=== PATIENT | female | born 1965 | race Caucasian/White ===

== ENCOUNTER 2017-07-04 08:57 | Emergency (ER) | payer SELFPAY ==
[~2017-07-04] VITALS: Ht 162.6 cm; Wt 105.0 kg
[2017-07-04] MEDS ORDERED: KETOROLAC 60MG/2ML VIAL IM STA (13:15)
[2017-07-04] MEDS ORDERED: METOCLOPRAMIDE HCL 10MG/2ML VIAL IM STA (13:15)
[2017-07-04 14:18] LABS: BASOPHILS % 0.6 % (0.0-2.0); CARBON DIOXIDE 30 mEq/L (21-32); CHLORIDE 108 mEq/L (98-107); EOSINOPHILS % 1.6 % (0.0-5.0); ETHANOL BLOOD < 10 mg/dL; HEMATOCRIT. 39.3 % (36.0-48.0); HEMOGLOBIN. 12.6 g/dL (12.0-16.0); LYMPHOCYTES % 36.1 % (20.0-50.0); MEAN CORPUSCULAR HEMOGLOBIN 25.8 pg (28.0-32.0); MEAN CORPUSCULAR VOLUME 80.2 fL (81.0-99.0); MEAN PLATELET VOLUME 7.8 fl (7.4-10.4); MONOCYTES % 4.6 % (2.0-8.0); NEUTROPHILS % 57.1 % (40.0-76.0); PLATELET 262 x1000/uL (130-400)
[2017-07-04 15:07] LABS: CLARITY URINE CLEAR (CLEAR); COLOR URINE YELLOW (YELLOW); KETONES URINE NEGATIVE (NEGATIVE); LEUKOCYTE ESTERASE URINE TRACE (NEGATIVE); NITRITE URINE NEGATIVE (NEGATIVE); OCCULT BLOOD URINE NEGATIVE (NEGATIVE); PH URINE 6.5 (4.5-8.0); PROTEIN URINE NEGATIVE (NEGATIVE); UROBILINOGEN URINE 0.2 E.U./dL (0.2-1.0)
[2017-07-04 16:05] VITALS: BP 127/80
== END 2017-07-04 16:30 | disposition home or self-care (01) ==
LOC: ER 09:28
DX: G44.89 Other headache syndrome (principal); K29.00 Acute gastritis without bleeding
CPT/HCPCS: 36415; 80053; 81001; 85025; 96372; 99284; G0482; J1885; J2765